=== PATIENT | male | born 1935 | race Caucasian/White ===

== ENCOUNTER 2016-12-06 13:07 | Emergency (ER) | payer OTHER ==
[~2016-12-06] VITALS: Ht 167.6 cm; Wt 50.9 kg
[2016-12-06] MEDS ORDERED: MEMANTINE HCL10 MG PO (13:24)
[2016-12-06] MEDS ORDERED: AMLODIPINE BESY10 MG PO (13:24)
[2016-12-06] MEDS ORDERED: SIMVASTATIN40 MG PO (13:24)
[2016-12-06 13:47] LABS: ADD MIUA? YES; BILIRUBIN NEGATIVE; BLOOD SMALL; COLOR AMBER ((YELLOW)); GLUCOSE (STRIP) NEGATIVE; KETONES NEGATIVE; LEUKOCYTES NEGATIVE; NITRITE NEGATIVE; PROTEIN (STRIP) 30; SPECIFIC GRAVITY 1.018 (1.000-1.030)
[2016-12-06 14:09] LABS: EOSINOPHIL (%) 0.3 % (0-5); HEMATOCRIT 44.7 % (38.0-50.0); IMMATURE GRANULOCYTE (%) 0.3 % (0.0-0.7); LYMPHOCYTE COUNT 1.4 K/uL (1.0-2.8); MCH 28.6 PG (29.0-34.0); MCHC 33.3 G/DL (30.0-36.0); MCV 85.8 FL (86-99); MEAN PLAT.VOLUME 10.8 uM^3 (9.0-12.4); MONOCYTE (%) 6.2 % (3-12); MONOCYTE COUNT 0.6 K/uL (0-0.8); NEUTROPHIL (%) 79.3 % (45-76); PLATELET COUNT 220 K/uL (156-360); RBC DIS.WIDTH-CV 12.6 % (11.8-14.6); RBC DIS.WIDTH-SD 39.3 % (39-53); RED BLOOD COUNT 5.21 M/uL (4.00-5.50); WHITE BLOOD COUNT 10.1 K/uL (4.1-10.2)
[2016-12-06 14:16] LABS: BACTERIA 1+ /HPF; CASTS PRESENT /LPF; CRYSTALS NONE SEEN; EPITHELIAL CELLS RARE /HPF; HYALINE CASTS 0-5 /LPF; MUCUS 1+ /LPF; RED BLOOD CELLS 0-5 /HPF (0-5); UCUL ADDED? NO; WHITE BLOOD CELLS RARE /HPF (0-5)
[2016-12-06 14:17] LABS: CHLORIDE 107 mEq/L (99-109); POTASSIUM 4.4 mEq/L (3.7-5.4); SODIUM 139 mEq/L (136-147)
[2016-12-06 14:19] LABS: GLUCOSE 100 mg/dL (70-99)
[2016-12-06 14:21] LABS: ANION GAP 10 MEQ/L (2-14)
[2016-12-06 14:23] LABS: GFR ESTIMATE (CALCULATED) 44 mL/min/
[2016-12-06 14:24] LABS: UREA NITROGEN (BUN) 23 mg/dL (9-23)
[2016-12-06 14:30] LABS: TROP-I INTERPRETATION NEGATIVE; TROPONIN-I < 0.01 ng/mL (0.0-0.30)
[2016-12-06 16:22] VITALS: BP 131/80
== END 2016-12-06 16:53 | disposition home or self-care (01) ==
LOC: EME 13:07
PROVIDERS: Emergency Medicine
DX: F03.90 Unspecified dementia, unspecified severity, without behavioral disturbance, psychotic disturbance, mood disturbance, and anxiety (principal); Z88.0 Allergy status to penicillin
CPT/HCPCS: 70450; 71010; 80048; 81003; 84484; 85025; 93005; 99281; 99285; J7030

== ENCOUNTER 2016-12-20 14:30 | Inpatient (IN) | payer OTHER ==
[~2016-12-20] VITALS: Ht 160 cm; Wt 49.3 kg
[~2016-12-20 14:30] MED LIST: AMLODIPINE BESY10 MG PO; MEMANTINE HCL10 MG PO; SIMVASTATIN40 MG PO
[2016-12-20 15:09] LABS: BASOPHIL COUNT 0.1 K/uL (0-0.1); EOSINOPHIL (%) 0.3 % (0-5); HEMATOCRIT 47.2 % (38.0-50.0); IMMATURE GRANULOCYTE (%) 0.4 % (0.0-0.7); IMMATURE GRANULOCYTE COUNT 0.1 K/uL; INSTRUMENT ABS NEUTROPHIL CT 11.1 K/uL; LYMPHOCYTE COUNT 1.3 K/uL (1.0-2.8); MCH 28.8 PG (29.0-34.0); MCHC 33.1 G/DL (30.0-36.0); MCV 87.1 FL (86-99); MONOCYTE (%) 3.8 % (3-12); MONOCYTE COUNT 0.5 K/uL (0-0.8); NEUTROPHIL (%) 85.4 % (45-76); NEUTROPHIL COUNT 11.1 K/uL (1.8-6.4); PLATELET COUNT 332 K/uL (156-360); RBC DIS.WIDTH-CV 12.6 % (11.8-14.6); RED BLOOD COUNT 5.42 M/uL (4.00-5.50)
[2016-12-20 15:16] LABS: CHLORIDE 106 mEq/L (99-109); POTASSIUM 4.2 mEq/L (3.7-5.4); SODIUM 141 mEq/L (136-147)
[2016-12-20 15:17] LABS: GLUCOSE 152 mg/dL (70-99)
[2016-12-20 15:19] LABS: ANION GAP 11 MEQ/L (2-14)
[2016-12-20 15:21] LABS: GFR ESTIMATE (CALCULATED) 36 mL/min/
[2016-12-20 15:22] LABS: UREA NITROGEN (BUN) 24 mg/dL (9-23)
[2016-12-20 15:27] LABS: TROP-I INTERPRETATION NEGATIVE; TROPONIN-I < 0.01 ng/mL (0.0-0.30)
[2016-12-20] MEDS ORDERED: ZOCOR40 MG PO (17:35)
[2016-12-20 20:45] VITALS: BP 150/82
[2016-12-21] VITALS (7 sets, daily range): BP systolic 130–187; BP diastolic 68–88
[2016-12-22 07:09] LABS: HEMATOCRIT 39.1 % (38.0-50.0); MCH 29.8 PG (29.0-34.0); MCHC 34.5 G/DL (30.0-36.0); MCV 86.3 FL (86-99); MEAN PLAT.VOLUME 10.7 uM^3 (9.0-12.4); PLATELET COUNT 269 K/uL (156-360); RBC DIS.WIDTH-CV 12.5 % (11.8-14.6); RBC DIS.WIDTH-SD 39.6 % (39-53); RED BLOOD COUNT 4.53 M/uL (4.00-5.50); WHITE BLOOD COUNT 6.7 K/uL (4.1-10.2)
[2016-12-22 07:38] LABS: ALKALINE PHOSPHATASE 85 IU/L (3-129); ANION GAP 8 MEQ/L (2-14); CHLORIDE 108 MEQ/L (99-109); GFR ESTIMATE (CALCULATED) > 59 mL/min/; POTASSIUM 3.7 MEQ/L (3.7-5.4); SAMPLE HEMOLYSIS CHECK 0; SAMPLE ICTERIC CHECK 0; SAMPLE LIPEMIA CHECK 0; SODIUM 140 MEQ/L (136-147); TOTAL BILIRUBIN 0.4 MG/DL (0.0-1.0); UREA NITROGEN (BUN) 12 mg/dL (9-23)
[2016-12-22 07:39] LABS: GLUCOSE 91 mg/dL (70-99)
[2016-12-22 08:06] VITALS: BP 131/60
[2016-12-22 16:00] VITALS: BP 155/72
[2016-12-23 03:42] VITALS: BP 165/77
[2016-12-23 07:00] VITALS: BP 150/74
[2016-12-23 15:56] VITALS: BP 118/63
[2016-12-24 00:08] VITALS: BP 160/83
[2016-12-24 07:10] VITALS: BP 124/67
[2016-12-24 16:39] VITALS: BP 123/58
[2016-12-24 23:19] VITALS: BP 117/65
[2016-12-25 07:46] VITALS: BP 160/75
[2016-12-25 16:08] VITALS: BP 133/64
[2016-12-25 22:59] VITALS: BP 136/72
[2016-12-26 06:38] LABS: MCH 28.7 PG (29.0-34.0); MEAN PLAT.VOLUME 10.5 uM^3 (9.0-12.4); PLATELET COUNT 254 K/uL (156-360); RBC DIS.WIDTH-CV 12.4 % (11.8-14.6); RBC DIS.WIDTH-SD 39.6 % (39-53); WHITE BLOOD COUNT 6.2 K/uL (4.1-10.2)
[2016-12-26 07:03] LABS: ANION GAP 7 MEQ/L (2-14); CHLORIDE 107 MEQ/L (99-109); GFR ESTIMATE (CALCULATED) > 59 mL/min/; GLUCOSE 92 mg/dL (70-99); POTASSIUM 3.9 MEQ/L (3.7-5.4); SAMPLE HEMOLYSIS CHECK 0; SAMPLE ICTERIC CHECK 0; SAMPLE LIPEMIA CHECK 0; SODIUM 142 MEQ/L (136-147); UREA NITROGEN (BUN) 8 mg/dL (9-23)
[2016-12-26 07:41] VITALS: BP 143/67
[2016-12-26] MEDS ORDERED: PANTOPRAZOLE SO40 MG PO (13:42)
[2016-12-26 16:07] LABS: POINT-OF-CARE METER ID UU13113725
[2016-12-26 16:27] VITALS: BP 135/66
== END 2016-12-26 17:40 | disposition hospice, home (50) | DRG 683 ==
LOC: EME → EDBD 14:30 → EME 14:30 → EDOF 18:20 → 5EAST 18:20
PROVIDERS: Emergency Medicine; Family Medicine; Internal Medicine
DX: N17.9 Acute kidney failure, unspecified (principal); Z91.81 History of falling; I95.1 Orthostatic hypotension; E86.0 Dehydration; R13.10 Dysphagia, unspecified; G20 Parkinson's disease; I10 Essential (primary) hypertension; F02.80 Dementia in other diseases classified elsewhere, unspecified severity, without behavioral disturbance, psychotic disturbance, mood disturbance, and anxiety; N39.0 Urinary tract infection, site not specified; G30.9 Alzheimer's disease, unspecified; Z85.46 Personal history of malignant neoplasm of prostate
CPT/HCPCS: 70450; 71020; 74230; 80048; 80053; 81003; 82948; 84484; 85025; 85027; 92611 GN; 93005; 97530 GO; 99281; 99285; J0696; J1644; J7030; J7050